=== PATIENT | female | born 1945 | race Caucasian/White ===

== ENCOUNTER 2017-05-31 07:13 | Emergency (ER) | payer OTHER ==
[~2017-05-31] VITALS: Ht 154.9 cm; Wt 47.6 kg
[~2017-05-31 07:13] MED LIST: IBUP200C5 PO; MELO15TA13 PO
[2017-05-31 07:21] VITALS: BP 112/72
[2017-05-31] MEDS ORDERED: HYDROCODONE/APAP 5/325MG 1 EACH TABLET PO ONE (07:30)
[2017-05-31] MEDS ORDERED: HYDROCODONE/APAP 5/325MG 1 EACH TABLET ONE (07:40)
== END 2017-05-31 09:01 | disposition home or self-care (01) ==
LOC: ER 07:14
DX: M48.02 Spinal stenosis, cervical region (principal); M19.90 Unspecified osteoarthritis, unspecified site
CPT/HCPCS: 72125; 99284; A4606; Z7610